=== PATIENT | female | born 1965 | race Caucasian/White ===

== ENCOUNTER 2019-04-27 11:20 | Emergency (ER) | payer BC ==
[~2019-04-27] VITALS: Ht 165.1 cm; Wt 49.9 kg
[~2019-04-27 11:20] MED LIST: ESTR0.452 PO; ZOLP5TAB2 PO
[2019-04-27] MEDS ORDERED: ONDANSETRON HCL 4 MG/2 ML VIAL ONE (11:44)
[2019-04-27] MEDS ORDERED: SODIUM CHLORIDE 0.9% 1000ML 1,000 ML IV ONE (11:44)
[2019-04-27 11:51] LABS: BASOPHILS % (AUTO) 0.5 % (0.0-5.0); EOSINOPHILS % (AUTO) 0.2 % (0.0-8.0); LYMPHOCYTES % (AUTO) 32.2 % (21.0-51.0); MEAN CORPUSCULAR HEMOGLOBIN 30.9 pg (27.0-33.0); MEAN CORPUSCULAR HGB CONC 33.5 g/dL (32.0-36.0); MEAN CORPUSCULAR VOLUME 92.4 fL (79-99); MONOCYTES % (AUTO) 6.4 % (3.0-13.0); NEUTROPHILS % (AUTO) 60.7 % (40.0-77.0); NUCLEATED RED BLOOD CELLS 0.1 % (0.0-0.19); PLATELET COUNT (AUTO) 329 K/uL (130-400); RED BLOOD CELL COUNT(AUTO) 4.66 MIL/uL (4.00-5.50); RED CELL DISTRIBUTION WIDTH 13.5 % (11.0-15.5); WHITE BLOOD COUNT (AUTO) 8.4 K/uL (4.8-10.8)
[2019-04-27 12:00] LABS: CREATININE 0.8 mg/dL (0.5-1.5); POTASSIUM 4.2 mmol/L (3.5-5.1)
[2019-04-27 12:03] LABS: BILIRUBIN,TOTAL 0.4 mg/dL (0.2-1.0); TOTAL PROTEIN, SERUM 7.8 g/dL (6.0-8.3)
[2019-04-27 12:09] LABS: INR 0.91 (0.85-1.15); PROTHROMBIN TIME 9.6 SEC (9.6-11.6)
[2019-04-27] MEDS ORDERED: ACYCLOVIR SODIUM 500 MG VIAL 500 MG in SODIUM CHLORIDE 0.9% 100 ML IV SCH (12:45)
[2019-04-27] MEDS ORDERED: KETOROLAC TROMETHAMINE 30MG/ML ONE (13:43)
[2019-04-27] MEDS ORDERED: PREDNISONE 20 MG TABLET ONE (15:38)
== END 2019-04-27 17:39 | disposition home or self-care (01) ==
LOC: EDH 11:20
DX: H81.399 Other peripheral vertigo, unspecified ear (principal); B02.21 Postherpetic geniculate ganglionitis; R11.10 Vomiting, unspecified; Z90.49 Acquired absence of other specified parts of digestive tract; Z90.89 Acquired absence of other organs; Z90.710 Acquired absence of both cervix and uterus; Z87.891 Personal history of nicotine dependence; Z88.2 Allergy status to sulfonamides
CPT/HCPCS: 36415; 70450; 80053; 82550; 84484; 85025; 85610; 85730; 96361; 96365; 96372; 96375; 99285; J0133; J1885; J2405; J7030

== ENCOUNTER 2019-09-14 10:17 | Emergency (ER) | payer BC | END 2019-09-14 11:42 | disposition home or self-care (01) | LOC: EDH 10:17 | DX: S06.0X0A Concussion without loss of consciousness, initial encounter (principal); S16.1XXS Strain of muscle, fascia and tendon at neck level, sequela; S60.222A Contusion of left hand, initial encounter; Z88.2 Allergy status to sulfonamides; Z90.49 Acquired absence of other specified parts of digestive tract; Z90.710 Acquired absence of both cervix and uterus; W18.39XA Other fall on same level, initial encounter; Y93.01 Activity, walking, marching and hiking; Y92.098 Other place in other non-institutional residence as the place of occurrence of the external cause; Y99.8 Other external cause status | CPT/HCPCS: 99281 ==